=== PATIENT | male | born 1995 | race Caucasian/White ===

== ENCOUNTER 2016-05-06 18:51 | Emergency (ER) | payer OTHER ==
[2016-05-06 18:58] VITALS: BP 132/84; PULSE 87; RESP 20; TEMP 98.4; O2SAT 97
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
[2016-05-06] MEDS ORDERED: SKIN ADHESIVE (DERMABOND) 1 EACH TP ONE (20:35)
== END 2016-05-06 21:02 | disposition home or self-care (01) ==
DX: S06.0X0A Concussion without loss of consciousness, initial encounter (principal); F17.200 Nicotine dependence, unspecified, uncomplicated; V28.2XXA Unspecified motorcycle rider injured in noncollision transport accident in nontraffic accident, initial encounter

== ENCOUNTER 2017-12-25 12:44 | Emergency (ER) | payer OTHER ==
[2017-12-25] MEDS ORDERED: ONDANSETRON 4 MG/2 ML VIAL IVP ONE (13:55)
[2017-12-25] MEDS ORDERED: NS 1,000 ML IV ONE (13:55)
[2017-12-25] MEDS ORDERED: ONDANSETRON DISINTEGRATING 4 MG TAB PO ONE (14:08)
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
[2017-12-25 14:27] VITALS: BP 133/83
== END 2017-12-25 14:27 | disposition home or self-care (01) ==
DX: R11.2 Nausea with vomiting, unspecified (principal); R06.4 Hyperventilation; F17.200 Nicotine dependence, unspecified, uncomplicated